=== PATIENT | male | born 1985 | race Hispanic/Latino ===

== ENCOUNTER 2016-08-06 01:56 | Emergency (ER) | payer SELFPAY ==
[~2016-08-06] VITALS: Ht 175.3 cm; Wt 82.0 kg
[~2016-08-06 01:56] MED LIST: ANTIVERT25 MG PO; ATARAX,VISTARIL25 M1 PO; COGENTIN0.5 MG PO; Cogentin PO; FLEXERIL10 MG PO; HALDOL10 MG PO; HALDOL5 MG PO; KlonoPIN PO; MAGNESIUM CITR100 MG PO; MEN'S MULTI-VI1 EACH PO; NAPROSYN500 MG PO; NIACIN 500 MG1 EACH PO; PERPHENAZINE8 MG PO; TRILAFON8 M1 PO; ZOFRAN ODT4 MG PO
[2016-08-06] MEDS ORDERED: ZOFRAN ODT4 MG PO (04:24)
[2016-08-06] MEDS ORDERED: ANTIVERT25 MG PO (04:24)
[2016-08-06 05:00] VITALS: BP 130/72
== END 2016-08-06 05:01 | disposition home or self-care (01) ==
LOC: EME 01:56
DX: H81.10 Benign paroxysmal vertigo, unspecified ear (principal); R11.2 Nausea with vomiting, unspecified; Z87.891 Personal history of nicotine dependence
CPT/HCPCS: 99281; 99284

== ENCOUNTER 2016-10-30 00:35 | Emergency (ER) | payer SELFPAY ==
[~2016-10-30] VITALS: Ht 175.3 cm; Wt 81.0 kg
[2016-10-30 01:24] LABS: HEMATOCRIT 43.5 % (38.0-50.0); MCH 22.8 PG (29.0-34.0); MCV 73.4 FL (86-99); MEAN PLAT.VOLUME 10.1 uM^3 (9.0-12.4); PLATELET COUNT 208 K/uL (156-360); RBC DIS.WIDTH-CV 14.1 % (11.8-14.6); RBC DIS.WIDTH-SD 37.2 % (39-53); RED BLOOD COUNT 5.93 M/uL (4.00-5.50); WHITE BLOOD COUNT 6.4 K/uL (4.1-10.2)
[2016-10-30 01:33] LABS: CHLORIDE 105 mEq/L (99-109); POTASSIUM 3.9 mEq/L (3.7-5.4); SODIUM 142 mEq/L (136-147)
[2016-10-30 01:34] LABS: GLUCOSE 116 mg/dL (70-99)
[2016-10-30 01:36] LABS: ANION GAP 12 MEQ/L (2-14)
[2016-10-30 01:38] LABS: GFR ESTIMATE (CALCULATED) > 59 mL/min/
[2016-10-30 01:39] LABS: UREA NITROGEN (BUN) 7 mg/dL (9-23)
[2016-10-30 02:27] LABS: ADD MIUA? NO; BILIRUBIN NEGATIVE; BLOOD NEGATIVE; COLOR YELLOW ((YELLOW)); GLUCOSE (STRIP) NEGATIVE; KETONES NEGATIVE; LEUKOCYTES NEGATIVE; NITRITE NEGATIVE; PROTEIN (STRIP) NEGATIVE; SPECIFIC GRAVITY 1.006 (1.000-1.030); UCUL ADDED? NO; UROBILINOGEN 0.2 MG/DL (0.2-1.0)
[2016-10-30] MEDS ORDERED: MECLIZINE HCL25 MG PO (02:33)
[2016-10-30 02:50] VITALS: BP 148/92
== END 2016-10-30 02:51 | disposition home or self-care (01) ==
LOC: EME 00:35
PROVIDERS: Emergency Medicine
DX: R42 Dizziness and giddiness (principal); J45.909 Unspecified asthma, uncomplicated; F32.9 Major depressive disorder, single episode, unspecified; Z87.891 Personal history of nicotine dependence
CPT/HCPCS: 80048; 81003; 85027; 99281; 99284

== ENCOUNTER 2017-07-04 23:27 | Emergency (ER) | payer SELFPAY ==
[~2017-07-04] VITALS: Ht 175.3 cm; Wt 84.5 kg
[~2017-07-04 23:27] MED LIST changes: +MECLIZINE HCL25 MG PO
[2017-07-05 00:23] LABS: HEMATOCRIT 38.8 % (38.0-50.0); HEMOGLOBIN 12.7 G/DL (12.5-16.6); MCH 23.6 PG (29.0-34.0); MCHC 32.7 G/DL (30.0-36.0); MCV 72.1 FL (86-99); PLATELET COUNT 226 K/uL (156-360); RBC DIS.WIDTH-CV 14.8 % (11.8-14.6); RBC DIS.WIDTH-SD 37.7 % (39-53); RED BLOOD COUNT 5.38 M/uL (4.00-5.50); WHITE BLOOD COUNT 7.6 K/uL (4.1-10.2)
[2017-07-05 00:24] LABS: ALBUMIN 3.9 g/dL (3.2-4.8); CHLORIDE 104 mEq/L (99-109); POTASSIUM 3.3 mEq/L (3.7-5.4); SODIUM 136 mEq/L (136-147)
[2017-07-05 00:27] LABS: GLUCOSE 183 mg/dL (70-99); TOTAL PROTEIN 6.2 g/dL (6.4-8.3)
[2017-07-05 00:29] LABS: TOTAL BILIRUBIN 0.3 mg/dL (0.0-1.0)
[2017-07-05 00:30] LABS: ALKALINE PHOSPHATASE 74 IU/L (3-129); SERUM ETHYL ALCOHOL < 10 mg/dL
[2017-07-05 00:31] LABS: GFR ESTIMATE (CALCULATED) > 59 mL/min/ (58.99-99999)
[2017-07-05 00:32] LABS: AST (GOT) 22 IU/L (2-34); UREA NITROGEN (BUN) 13 mg/dL (9-23)
[2017-07-05 00:33] LABS: ALT (GPT) 21 IU/L (3-49)
[2017-07-05 01:37] LABS: APPEARANCE CLEAR ((CLEAR)); BILIRUBIN NEGATIVE; BLOOD NEGATIVE; COLOR STRAW ((YELLOW)); GLUCOSE (STRIP) NEGATIVE; KETONES NEGATIVE; LEUKOCYTES NEGATIVE; NITRITE NEGATIVE; PROTEIN (STRIP) NEGATIVE; SPECIFIC GRAVITY 1.004 (1.000-1.030); UROBILINOGEN 0.2 MG/DL (0.2-1.0)
[2017-07-05 02:05] LABS: AMPHETAMINE NEGATIVE (500 ng/mL); BARBITURATES NEGATIVE (200 ng/mL); BENZODIAZEPINES NEGATIVE (150 ng/mL); BUPRENORPHINE NEGATIVE (10 ng/mL); COCAINE NEGATIVE (150 ng/mL); METHADONE NEGATIVE (200 ng/mL); METHAMPHETAMINE NEGATIVE (500 ng/mL); OPIATES (MORPHINE) NEGATIVE (100 ng/mL); OXYCODONE NEGATIVE (100 ng/mL); PHENCYCLIDINE NEGATIVE (25 ng/mL); PROPOXYPHENE NEGATIVE (300 ng/mL); THC CANNABINOIDS NEGATIVE (50 ng/mL); TRICYCLIC ANTIDEPRESSANTS NEGATIVE (300 ng/mL)
[2017-07-05 02:34] VITALS: BP 131/82
== END 2017-07-05 02:41 | disposition home or self-care (01) ==
LOC: EME 23:27
PROVIDERS: Emergency Medicine
DX: F41.9 Anxiety disorder, unspecified (principal); F12.10 Cannabis abuse, uncomplicated; J45.909 Unspecified asthma, uncomplicated; F32.9 Major depressive disorder, single episode, unspecified; Z87.891 Personal history of nicotine dependence
CPT/HCPCS: 80053; 81003; 85027; 85379; 93005; 99281; 99285; G0480; J7030